=== PATIENT | female | born 1985 | race Two or more races ===

== ENCOUNTER 2017-09-25 20:23 | Emergency (ER) | payer MEDICAID, OTHER ==
[2017-09-25 20:23] VITALS: BMI 22.1
--- NOTE | 2017-09-25 21:32 | C.PDOC ---
History Of Present Illness 31 year old female presents to the ED for valuation of headache and dizziness. Patient reports yesterday she was walking in her basement when she hit a beam, today she states persistent headache and dizziness. Patient denies LOC, visual changes, nausea, vomit, weakness, numbness. Time Seen by Provider: 09/25/17 20:55 Chief Complaint (Nursing): Dizziness/Lightheaded History Per: Patient History/Exam Limitations: no limitations Onset/Duration Of Symptoms: Days Current Symptoms Are (Timing): Still Present Seizure Or Post-ictal Symptoms: None Fall Associated With With Symptoms: No Severity: None Recent travel outside of the [place]: No Additional History Per: Patient Past Medical History Reviewed: Historical Data, Nursing Documentation, Vital Signs Vital Signs: Last Vital Signs Temp 97.6 F 09/25/17 20:24 Pulse 61 09/25/17 20:24 Resp 20 09/25/17 20:24 BP 127/76 09/25/17 20:24 Pulse Ox 100 09/25/17 22:59 - Medical History PMH: Anxiety Surgical History: Tonsillectomy - [facility] Procedures MONITORING NOS (07/24/14) MANUAL ASSIST DELIV NEC (07/27/14) Family History: States: Unknown Family Hx - Social History Hx Tobacco Use: No Hx Alcohol Use: No Hx Substance Use: No - Immunization History Hx Tetanus Toxoid Vaccination: No Hx Influenza Vaccination: Yes Hx Pneumococcal Vaccination: No Review Of Systems Constitutional: Negative for: Fever, Chills Cardiovascular: Negative for: Chest Pain, Palpitations Respiratory: Negative for: Cough, Shortness of Breath Gastrointestinal: Negative for: Nausea, Vomiting, Abdominal Pain Skin: Negative for: Rash Neurological: Positive for: Headache, Dizziness. Negative for: Weakness, Numbness Physical Exam - Physical Exam Appears: Non-toxic, No Acute Distress Skin: Normal Color, Warm, Dry Head: Atraumatic, Normacephalic Nose: No Discharge Oral Mucosa: Moist Neck: Normal ROM, Supple Chest: Symmetrical Cardiovascular: Rhythm Regular, No Murmur Respiratory: Normal Breath Sounds, No Rales, No Rhonchi, No Wheezing Gastrointestinal/Abdominal: Soft, No Tenderness, No Distention, No Rebound Extremity: Normal ROM, No Pedal Edema, No Calf Tenderness, No Swelling Neurological/Psych: Oriented x3, Normal Speech, Normal Cognition, Normal Cranial Nerves, Normal Motor, Normal Sensation Gait: Steady ED Course And Treatment O2 Sat by Pulse Oximetry: 100 (On RA) Pulse Ox Interpretation: Normal - CT Scan/US CT Head Other Rad Studies (CT/US): Interpreted By Me, Read By Radiologist, Radiology Report Reviewed CT/US Interpretation: EXAM: CT Head Without Intravenous Contrast. CLINICAL HISTORY: 31 years old, female; Injury or trauma; Injury Bumped head; Initial encounter; Abrasion; Forehead;. Additional info: Head injury. TECHNIQUE: Axial computed tomography images of the head/brain without intravenous contrast. All CT scans at. this facility use one or more dose reduction techniques, viz.: automated exposure control; ma/kV. adjustment per patient size (including targeted exams where dose is matched to indication; i.e. head); . or iterative reconstruction technique. Coronal and sagittal reformatted images were created and reviewed. COMPARISON: CT - HEAD W/O CONTRAST 16:16. FINDINGS: Brain: No intracranial hemorrhage. No mass. No edema. Ventricles: No hydrocephalus. Bones/joints: No acute fracture. Soft tissues: Unremarkable. Sinuses: No acute sinusitis. Mastoid air cells: No mastoid effusion. Orbits: Unremarkable as visualized. IMPRESSION: 1. No intracranial hemorrhage. Medical Decision Making Medical Decision Making: Plan: CT head to rule out injury Tylenol 650 mg PO Reglan 10 mg PO Head injury detailed instructions will be provided as well as concussion precautions. 10:56PM CT head negative Disposition - Disposition Disposition: HOME/ ROUTINE Disposition Time: 22:56 Condition: GOOD Additional Instructions: Follow-up with PMD within 2 days. Return to ED if condition worsens. No contact sports until cleared by PMD. Avoid repeat head injury. Instructions: Concussion (ED), Head Injury (ED) Forms: [employer] (Salvadorean), Work Excuse - Clinical Impression Clinical Impression: Concussion - Scribe Statement The provider has reviewed the documentation as recorded by the Scribe David Morales All medical record entries made by the Scribe were at my direction and personally dictated by me. I have reviewed the chart and agree that the record accurately reflects my personal performance of the history, physical exam, medical decision making, and the department course for this patient. I have also personally directed, reviewed, and agree with the discharge instructions and disposition.
--- NOTE | 2017-09-25 22:54 | CT ---
EXAM: CT Head Without Intravenous Contrast CLINICAL HISTORY: 31 years old, female; Injury or trauma; Injury Bumped head; Initial encounter; Abrasion; Forehead; Additional info: Head injury TECHNIQUE: Axial computed tomography images of the head/brain without intravenous contrast. All CT scans at this facility use one or more dose reduction techniques, viz.: automated exposure control; ma/kV adjustment per patient size (including targeted exams where dose is matched to indication; i.e. head); or iterative reconstruction technique. Coronal and sagittal reformatted images were created and reviewed. COMPARISON: CT - HEAD W/O CONTRAST 2013-05-10 16:16 FINDINGS: Brain: No intracranial hemorrhage. No mass. No edema. Ventricles: No hydrocephalus. Bones/joints: No acute fracture. Soft tissues: Unremarkable. Sinuses: No acute sinusitis. Mastoid air cells: No mastoid effusion. Orbits: Unremarkable as visualized. IMPRESSION: 1. No intracranial hemorrhage.
[2017-09-25 23:10] VITALS: BP 119/77; PULSE 72; RESP 16; TEMP 97.7; O2SAT 97
== END 2017-09-25 23:10 | disposition home or self-care (01) ==
LOC: C.ER 20:23
DX: S06.0X0A Concussion without loss of consciousness, initial encounter (principal); W22.8XXA Striking against or struck by other objects, initial encounter; Y93.01 Activity, walking, marching and hiking; Y92.008 Other place in unspecified non-institutional (private) residence as the place of occurrence of the external cause

== ENCOUNTER 2018-08-17 20:38 | Emergency (ER) | payer SELFPAY ==
[2018-08-17 20:38] VITALS: BMI 22.1
[2018-08-17 21:00] VITALS: BP 129/85; PULSE 72; TEMP 98.8; O2SAT 100
--- NOTE | 2018-08-17 23:02 | C.PDOC ---
History Of Present Illness 32 year old female presents to the ER with a complaint of left sided neck, face, scalp, and ear pain for the past 3 days after she hit her left ear on a low ceiling beam. She reports taking advil at home with no relief. Denies LOC or vomiting, no visual c/o dizziness or weakness. Time Seen by Provider: 08/17/18 21:19 Chief Complaint (Nursing): ENT Problem History Per: Patient History/Exam Limitations: no limitations Onset/Duration Of Symptoms: Days (3) Current Symptoms Are (Timing): Still Present Preceeding Symptoms: None Associated Symptoms: denies: Photophobia, Blurred Vision, Nausea, Vomiting, Extremity Weakness Recent travel outside of the [place]: No Past Medical History Reviewed: Historical Data, Nursing Documentation, Vital Signs Vital Signs: Last Vital Signs Temp 98.8 F 08/17/18 20:56 Pulse 72 08/17/18 20:56 Resp 18 08/17/18 20:56 BP 129/85 08/17/18 20:56 Pulse Ox 100 08/17/18 20:56 - Medical History PMH: Anxiety Surgical History: Tonsillectomy - [facility] Procedures MONITORING NOS (07/24/14) MANUAL ASSIST DELIV NEC (07/27/14) Family History: States: Unknown Family Hx - Social History Hx Tobacco Use: No Hx Alcohol Use: No Hx Substance Use: No - Immunization History Hx Tetanus Toxoid Vaccination: No Hx Influenza Vaccination: No Hx Pneumococcal Vaccination: No Review Of Systems ENT: Positive for: Ear Pain (Left) Gastrointestinal: Negative for: Vomiting Musculoskeletal: Positive for: Neck Pain (Left), Other (Left scalp/facial pain) Neurological: Negative for: Weakness, Numbness, Other (LOC) Physical Exam - Physical Exam Appears: Non-toxic Skin: Normal Color, Warm, Dry Head: Atraumatic, Normacephalic, Tenderness (Palpation of left scalp and facial area) Eye(s): bilateral: Normal Inspection, PERRL, EOMI, Other (VA 20/20) Ear(s): Left: Other (Tenderness on palpation, TM and canal normal, no blood), Right: Normal Nose: Normal Oral Mucosa: Moist Neck: No Midline Cervical Tenderness, Paracervical Tenderness (Left), Supple Extremity: Normal ROM (x4) Neurological/Psych: Oriented x3, Normal Speech Gait: Steady ED Course And Treatment O2 Sat by Pulse Oximetry: 100 - CT Scan/US CT Head Other Rad Studies (CT/US): Read By Radiologist, Radiology Report Reviewed CT/US Interpretation: EXAM: CT Head without Intravenous Contrast. CLINICAL HISTORY: TRAUMA. TECHNIQUE: Axial computed tomography images of the head/brain without intravenous contrast. 921 mGy-cm. COMPARISON: None provided. FINDINGS: BRAIN. No acute intraparenchymal hemorrhage. No mass lesion. No CT evidence for acute territorial infarct. No midline shift or extra- axial collections. VENTRICLES: No hydrocephalus. ORBITS: The orbits are unremarkable. SINUSES AND MASTOIDS: The paranasal sinuses and mastoid air cell s are clear. BONES: No fracture. SOFT TISSUES: Unremarkable. IMPRESSION: No acute intracranial abnormality. Progress Note: CT head ordered, results were negative. Tylenol administered. Patient is resting comfortably in the ER in no acute distress, vitals are stable, will discharge home with instructions to follow up with PMD or return if symptoms worsen. Disposition - Disposition Referrals: Kai Amezcua MD [Primary Care Provider] - Disposition: HOME/ ROUTINE Disposition Time: 23:13 Condition: STABLE Additional Instructions: Take medications as prescribed Follow up with your doctor Return to ER if worse Prescriptions: Cyclobenzaprine [Cyclobenzaprine HCl] 10 mg PO HS #7 tab Ibuprofen [Motrin] 600 mg PO Q6H #20 tab Instructions: Headache, Adult, Muscle and Bone Pain (DC) Forms: [facility] ([place]) - Clinical Impression Clinical Impression: Headache, Musculoskeletal pain - PA / RISK OFFICER / Resident Statement MD/DO has reviewed & agrees with the documentation as recorded. - Scribe Statement The provider has reviewed the documentation as recorded by the Scribjuan Moore All medical record entries made by the Shirinibjuan were at my direction and personally dictated by me. I have reviewed the chart and agree that the record accurately reflects my personal performance of the history, physical exam, medical decision making, and the department course for this patient. I have also personally directed, reviewed, and agree with the discharge instructions and disposition.
[2018-08-17 23:28] VITALS: RESP 20
--- NOTE | 2018-08-18 07:09 | CT ---
Date of service: 08/17/2018 PROCEDURE: CT HEAD WITHOUT CONTRAST. HISTORY: headache, hit left side head in beam COMPARISON: None available. TECHNIQUE: Axial computed tomography images were obtained through the head/brain without intravenous contrast. Radiation dose: Total exam DLP = 921.86 mGy-cm. This CT exam was performed using one or more of the following dose reduction techniques: Automated exposure control, adjustment of the mA and/or kV according to patient size, and/or use of iterative reconstruction technique. FINDINGS: HEMORRHAGE: No intracranial hemorrhage. Punctate hyperdensity seen at the level of the anterior inferior left cerebellum on series 4, image 7 likely represents some adjacent streak attenuation artifact. BRAIN: No mass effect or edema. No atrophy or chronic microvascular ischemic changes. VENTRICLES: Unremarkable. No hydrocephalus. CALVARIUM: Unremarkable. PARANASAL SINUSES: Unremarkable as visualized. No significant inflammatory changes. MASTOID AIR CELLS: Unremarkable as visualized. No inflammatory changes. OTHER FINDINGS: None. IMPRESSION: No acute intracranial abnormality. If symptoms persists, consider correlation with MRI. A preliminary report was generated at 11:01 p.m. on 08/17/[address] Douglas Mabry from [facility].
== END 2018-08-17 23:28 | disposition home or self-care (01) ==
LOC: C.ER 20:38 → SUPCPDRO 20:38 → C.ER 23:28
DX: R51 Headache (principal); M79.18 Myalgia, other site